=== PATIENT | female | born 1985 | race Hispanic/Latino ===

== ENCOUNTER 2021-08-18 06:43 | Emergency (ER) | payer BC, SELFPAY ==
[2021-08-18 06:44] VITALS: BP 131/78; PULSE 91; RESP 16; TEMP 37.2; O2SAT 100; BMI 29.9
--- NOTE | 2021-08-18 07:37 | EKG12_ITS ---
Test Reason : Blood Pressure : / mmHG Vent. Rate : 089 BPM Atrial Rate : 089 BPM P-R Int : 128 ms QRS Dur : 076 ms QT Int : 324 ms P-R-T Axes : 002 071 037 degrees QTc Int : 394 ms Normal sinus rhythm Normal ECG Confirmed by JARETT JEWELL, MICHAEL ([id number]), magazine editor BRITTANI KRAMER ([id number]) on 08/19/2021 8:59:34 AM Referred By: DAYSI Confirmed By:MICHAEL DENSON MD
--- NOTE | 2021-08-18 07:37 | EDS_ITS ---
HPI History of Present Illness Chief Complaint: Dizziness Informant: patient and spouse/S.O. Narrative Narrative: 36-year-old female presenting to the emergency room with lightheadedness. Patient states symptoms began yesterday. She notes that she recently found out that she was about 20 weeks . He has her first OB appointment upcoming. She is . She denies any fevers. No vomiting or diarrhea. She notes she has been eating and drinking okay. Reportedly had a blood pressure reading of 90 systolic at home. She has not lost consciousness. She denies any recent illnesses PFSH PFSH Medical History no medical history Home Medications NK 08/18/21 [History Last Taken Unknown] Allergy/AdvReac Type Severity Reaction Status Date / Time No Known Allergies Allergy Verified 08/18/21 06:47 Social History (Updated 08/18/21 @ 07:[address] Checo Ivey, DO) current gender identity: female Smoking Status: Never smoker ROS ROS ED ROS Narrative Lightheadedness Constitutional Constitutional ED: Denies chills or weight loss Eyes Eyes: Denies change in vision or diplopia ENT ENT ED: Denies ear pain, rhinorrhea or sore throat Cardiovascular Cardiovascular: Denies chest pain, orthopnea, palpitations or racing heartbeat Respiratory/Chest Respiratory/Chest: Denies cough, dyspnea or orthopnea Gastrointestinal Gastrointestinal: Reports nausea; Denies abdominal pain, diarrhea or vomiting Genitourinary Genitourinary ED: Denies dysuria, hematuria or urinary frequency Musculoskeletal Musculoskeletal: Denies arthralgias or myalgias Integumentary Denies abscess or rash Neurologic Neurologic: Denies headache(s) or weakness Psychiatric Psychiatric: Denies anxiety, depression, suicidal ideation or suicidal thoughts Endocrine Endocrinology: Denies polydipsia, polyphagia or polyuria Allergic/Immunologic Allergic/Immunologic ED: Denies mouth swelling, tongue swelling or urticaria EXAM Physical Exam Const Vital Signs: 08/18/21 06:44 08/18/21 06:49 Temperature 99 F Temperature Source Oral Pulse Rate 91 Respiratory Rate 16 Respiratory Effort Normal Non-Labored Respiratory Pattern Normal Blood Pressure 131/78 H Blood Pressure Mean 95 Pulse Ox 100 Oxygen Delivery Method Room Air Positive well nourished and well developed General Appearance ED: well developed HEENT Reports normocephalic, head/scalp atraumatic and moist mucous membranes Eyes PERRL and EOMs intact bilaterally Neck no lymphadenopathy, supple and no JVD Resp normal respiratory effort and clear to auscultation bilaterally Cardio regular rate, regular rhythm and no murmurs GI normal to inspection, nondistended, normoactive bowel sounds and non-tender Palpation: soft Back/Spine no CVA tenderness and normal ROM Extremity normal to inspection General Extremety ED: Negative for edema General Extremity: Negative for edema Neuro oriented x3 and CN's II-XII intact bilaterally Sensorium / Orientation: alert Motor Exam: strength 5/5 throughout Psych mental status grossly normal Mood & Affect: Negative for depressed or tearful Skin no rashes or lesions noted and no wounds MDM MDM MDM Narrative Medical decision making narrative: body maker via iPad was utilized for this visit. Bedside ultrasound shows a single live intrauterine . heart rate 148 bpm. Basic blood work showed a white count 12.3. Urinalysis contaminated but no overt infection. CMP normal. EKG is a normal sinus rhythm. Patient clinically appears well. Should be discharged home with supportive care following up with [facility] Lab Data Attestation: I reviewed the patient's lab results. Labs: Laboratory Results - last 24 hr 08/18/21 08/18/21 08/18/21 07:40 07:40 08:00 WBC 12.3 H RBC 4.36 Hgb 12.5 Hct 39.3 MCV 90.1 MCH 28.7 MCHC 31.8 L RDW Std Deviation 45.7 H RDW Coeff of Ying 13.8 Plt Count 220 MPV 10.4 Immature Gran % (Auto) 0.800 Neut % (Auto) 76.2 H Lymph % (Auto) 12.4 L [place] % (Auto) 9.7 Eos % (Auto) 0.6 Baso % (Auto) 0.3 Absolute Neuts (auto) 9.4 H Absolute Lymphs (auto) 1.53 Nucleated RBC % 0 Sodium 135 L Potassium 4.1 Chloride 104 Carbon Dioxide 25.0 Anion Gap 6 BUN 7 Creatinine 0.63 Estim Creat Clear Calc 92.26 Est GFR (MDRD) Af Amer 137 Est GFR (MDRD) Non-Af 113 BUN/Creatinine Ratio 11.1 Glucose 102 Calcium 9.2 Total Bilirubin 0.30 AST 12 L ALT 16 Alkaline Phosphatase 43 L Total Protein 7.1 Albumin 2.9 L Globulin 4.2 Albumin/Globulin Ratio 0.7 L Urine Color Yellow Urine Clarity Sl. Cloudy Urine pH 7.0 Ur Specific [place] 1.005 Urine Protein Negative Urine Glucose (UA) Normal Urine Ketones Negative Urine Occult Blood Negative Urine Nitrite Negative Urine Bilirubin Negative Urine Urobilinogen Normal Ur Leukocyte Esterase 100 H Urine RBC 0 SEEN Urine WBC 10-25 SEEN Ur Squamous Epith Cells 10-25 SEEN Urine Bacteria 1+ Urine Mucus 0 SEEN EKG Initial EKG: Comments: Normal sinus rhythm with a ventricular rate of 89 bpm Discharge Plan Triage Chief Complaint: Dizziness ED Provider: Checo Ivey Dx/Rx/DC Orders Clinical Impression: Near syncope, Second trimester Instructions: Preg 2nd Trimester Prescriptions: No Action NK Primary Care Provider: Care Physician,No Primary Referrals: NOT,DEFINED [NON-STAFF] - Activity Restrictions/Additional Instructions: Please follow-up with your assistant cross country coach as scheduled. Disposition Disposition: Home, Self Care
[2021-08-18 07:49] LABS: Absolute Lymphocyte Count 1.53 X10^3/uL (0.83-4.51); Absolute Neutrophil Count 9.4 X10^3/uL (2.0-7.7); Basophil# 0.04 X10^3/uL; Basophil% 0.3 % (0-1); Eosinophil# 0.07 X10^3/uL; Eosinophils% 0.6 % (0-5); Hematocrit 39.3 % (37-47); Hemoglobin 12.5 g/dL (12.0-15.0); Lymphocyte # 1.53 X10^3/ul (0.83-4.51); Lymphocyte % 12.4 % (19-41); Mean Corp Hgb Conc 31.8 g/dL (32-36); Mean Corpuscular Hgb 28.7 pg (27.0-32.0); Mean Corpuscular Volume 90.1 fL (81-99); Mean Platelet Vol. 10.4 fl (6.2-12.0); Monocyte# 1.19 X10^3/uL; Monocyte% 9.7 % (0-10); NRBC Flagged by Analyzer 0 % (0-5); Neutrophil # 9.37 X10^3/uL (2.7-7.7); Neutrophil % 76.2 % (47-70); Platelet Count 220 K/mm3 (150-450); RBC Distribution Width CV 13.8 % (11.6-14.6); RBC Distribution Width SD 45.7 fl (35.1-43.9); Red Blood Count 4.36 M/mm3 (4.2-5.4); White Blood Count 12.3 K/mm3 (4.4-11.0)
[2021-08-18 08:02] LABS: ALB/GLOB Ratio 0.7 RATIO (0.9-2.4); AST(SGOT) 12 U/L (15-37); Alanine Aminotransfer ALT/SGPT 16 U/L (13-56); Albumin, Serum 2.9 g/dL (3.2-5.0); Alkaline Phosphatase 43 U/L (45-117); Anion Gap 6 (5-15); BUN 7 mg/dL (7-18); BUN/Creat Ratio 11.1 RATIO (10-20); Calcium,Total 9.2 mg/dL (8.5-10.1); Chloride 104 mmol/L (98-107); Creatinine, Serum 0.63 mg/dL (0.55-1.02); EST Glomerular Filtration Rate 113 mL/min (>60); Est Glom Filt Rate - Afr Amer 137 mL/min (>60); Estimated Creatinine Clearance 92.26 ml/min; Globulin 4.2 g/dL (2.2-4.2); Glucose 102 mg/dL (74-106); Potassium 4.1 mmol/L (3.5-5.1); Protein, Total 7.1 g/dL (6.4-8.2); Sodium Level 135 mmol/L (136-145)
[2021-08-18 08:04] LABS: Mucous, Urine 0 SEEN /hpf (<or=2+); Red Blood Cells-Urine 0 SEEN /hpf (0-5)
[2021-08-18 08:10] LABS: Color, Urine Yellow (Yellow); Glucose, Dipstick Normal (Normal); Ketone-Dipstick Negative (Negative); Leukocyte Esterase-Dipstick 100 /ul (Negative); Nitrite-Dipstick Negative (Negative); Occult Blood-Urine Negative /ul (Negative); Protein-Dipstick Negative (Negative); Specific Gravity, Urine 1.005 (1.002-1.030); Urine Bilirubin Dipstick Negative (Negative); Urine Clarity Sl. Cloudy (Clear); Urine Urobilinogen Normal (Normal)
[2021-08-18 08:17] LABS: Bacteria 1+ /hpf (None Seen); Squamous Epithelial Cells - UA 10-25 SEEN /hpf (5-10); White Blood Cells 10-25 SEEN /hpf (0-5)
[2021-08-18 08:57] VITALS: BP 128/87; PULSE 100; RESP 18; O2SAT 98
== END 2021-08-18 08:58 | disposition home or self-care (01) ==
PROVIDERS: Emergency Provider Emergency Medicine; Visit Provider Emergency Medicine
DX: O99.891 Other specified diseases and conditions complicating pregnancy (principal); R55 Syncope and collapse; O09.512 Supervision of elderly primigravida, second trimester; R42 Dizziness and giddiness; Z3A.20 20 weeks gestation of pregnancy
CPT/HCPCS: 80053; 81001; 85025; 93005; 99283

== ENCOUNTER 2021-08-19 15:00 | Inpatient (IN) | payer BC, SELFPAY ==
[2021-08-19] VITALS (52 sets, daily range): BP systolic 85–197; BP diastolic 52–93; PULSE 67–108; TEMP 36.8–37.2; O2SAT 99–100; BMI 29.5
--- NOTE | 2021-08-19 15:09 | HP.PCM.OB_ITS ---
HPI - General General Date of Admission: 08/19/21 Chief Complaint: abdominal pain HPI Narrative IKE ROMAN, is a 36 F G1 who presents at 21 weeks gestation by stated ENZO 12/30/21 with intermittent abdominal pain and vaginal bleeding. She reports uncomplicated thus far. Recently traveled from the [place] and had an ultrasound there at 14 weeks gestation confirming living consistent with conception dates. PFSH PFSH Medical History no medical history no medical history Home Medications NK 08/18/21 [History Last Taken Unknown] Allergy/AdvReac Type Severity Reaction Status Date / Time No Known Allergies Allergy Verified 08/19/21 13:49 Family History no significant family his Surgical History no surgical history no surgical history Social History Smoking Status: Never smoker History 1 Elective abortions Hx Para 0 Spontaneous abortions Hx # Term Pregnancies Ectopic pregnancies Hx # Pregnancies Multiple births # of living children Addt'l History: History of irregular menses Vital Signs Vital Signs Vital Signs: 08/19/21 13:34 08/19/21 13:34 08/19/21 13:35 Temperature Temperature Source Temporal Pulse Rate 107 H Pulse Ox 100 08/19/21 13:35 Temperature 98.9 F Temperature Source Pulse Rate Pulse Ox Weight Weight: 70.76 kg Body Mass Index (BMI) 29.5 Physical Exam Const alert and oriented x3 Constitutional Narrative: breathing through contractions HEENT normocephalic Resp normal respiratory effort, normal air movement and clear to auscultation bilaterally Cardio regular rate and regular rhythm GI normal to inspection, nondistended, normoactive bowel sounds, soft to palpation and non-distended Inspection: gravid Narrative: Fundus tender SSE with BBOW in the vagina and large clot present, no hemorrhage present h owever and cervix not seen Bedside US with EFW 256g c/w 19w1d gestation ([place] 19w2d), double footling breech presentation with BBOW and lower extremities within the vagina Extremity no calf tenderness Labs Labs Labs: Blood Type O POSITIVE Antibody Screen NEGATIVE Hct 32.9 % (37-47) L Hgb 10.2 g/dL (12.0-15.0) L Syphilis Total Ab Pending Rubella IgG Antibody Pending Hep Bs Antigen Pending HIV 1&2 Antibody Pending Assessment & Plan (1) 21 weeks gestation of : (2) labor in second trimester: PLAN: labs, TFTs today Counseled patient and on inevitable delivery, development and limitations of support at this age. Discussed anticipated labor course and comfort care measures. Discussed r/b labor analgesia, pt declines at this time (3) Placental abruption: PLAN: PT/PTT, fibrinogen
[2021-08-19] MEDS: LACTATED RINGERS 500 ML 999 ML IV (15:10)
[2021-08-19] MEDS: Lactated Ringers 1,000 ML 200 ML IV (15:10)
[2021-08-19 15:56] LABS: Fibrinogen 626 mg/dl (203-444); Prothrombin Time (Protime)PT. 12.8 SECONDS (11.7-14.9)
[2021-08-19 16:07] LABS: Partial Thromboplast Time 24.3 Seconds (24.1-36.2)
[2021-08-19 16:26] LABS: Absolute Neutrophil Count 11.7 X10^3/uL (2.0-7.7); Basophil# 0.05 X10^3/uL; Basophil% 0.3 % (0-1); Eosinophil# 0.05 X10^3/uL; Eosinophils% 0.3 % (0-5); Hematocrit 41.7 % (37-47); Hemoglobin 13.5 g/dL (12.0-15.0); Lymphocyte % 14.4 % (19-41); Mean Corp Hgb Conc 32.4 g/dL (32-36); Mean Corpuscular Volume 89.7 fL (81-99); Mean Platelet Vol. 10.3 fl (6.2-12.0); Monocyte# 1.19 X10^3/uL; Monocyte% 7.8 % (0-10); NRBC Flagged by Analyzer 0 % (0-5); Neutrophil # 11.73 X10^3/uL (2.7-7.7); Neutrophil % 76.5 % (47-70); Platelet Count 235 K/mm3 (150-450); RBC Distribution Width CV 13.9 % (11.6-14.6); RBC Distribution Width SD 45.5 fl (35.1-43.9); Red Blood Count 4.65 M/mm3 (4.2-5.4); White Blood Count 15.3 K/mm3 (4.4-11.0)
[2021-08-19] MEDS: Oxytocin 30 units/NS 500 ml 30 UNITS/500 ML IV.SOLN 334 UNITS IV (17:15)
[2021-08-19] MEDS: miSOPROStol 200 MCG Tablet 1000 MCG RC (17:25)
[2021-08-19 17:29] LABS: ALB/GLOB Ratio 0.6 RATIO (0.9-2.4); AST(SGOT) 9 U/L (15-37); Alanine Aminotransfer ALT/SGPT 16 U/L (13-56); Alkaline Phosphatase 56 U/L (45-117); Anion Gap 10 (5-15); BUN 5 mg/dL (7-18); BUN/Creat Ratio 7.8 RATIO (10-20); Calcium,Total 9.1 mg/dL (8.5-10.1); Chloride 104 mmol/L (98-107); Creatinine, Serum 0.64 mg/dL (0.55-1.02); EST Glomerular Filtration Rate 111 mL/min (>60); Est Glom Filt Rate - Afr Amer 134 mL/min (>60); Estimated Creatinine Clearance 90.82 ml/min; Free T3 2.2 pg/mL (2.18-3.98); Glucose 87 mg/dL (74-106); Potassium 3.6 mmol/L (3.5-5.1); Sodium Level 136 mmol/L (136-145); T4 Free Direct 0.94 ng/dL (0.76-1.46); Thyroid Stim Hormone (TSH) 1.97 uIU/mL (0.358-3.74)
[2021-08-19] MEDS: Ketorolac 30 MG/ML Syringe IM (18:16)
[2021-08-19 19:52] LABS: Bacteria 0 SEEN /hpf (None Seen); Mucous, Urine 0 SEEN /hpf (<or=2+); Red Blood Cells-Urine 0 SEEN /hpf (0-5); White Blood Cells 0 SEEN /hpf (0-5)
[2021-08-19 19:59] LABS: Color, Urine Yellow (Yellow); Glucose, Dipstick Normal (Normal); Leukocyte Esterase-Dipstick Negative /ul (Negative); Nitrite-Dipstick Negative (Negative); Occult Blood-Urine 10 /ul (Negative); Protein-Dipstick Negative (Negative); Urine Bilirubin Dipstick Negative (Negative); Urine Clarity Clear (Clear); Urine Urobilinogen Normal (Normal)
[2021-08-19 20:06] LABS: Ketone-Dipstick 150 mg/dl (Negative)
[2021-08-19 20:33] LABS: Amphetamine Urine VISTA NEGATIVE (<1000 ng/mL); Barbiturate Urine VISTA NEGATIVE (< 200 ng/mL); Benzodiazepine Urine VISTA NEGATIVE (< 200 ng/mL); Cocaine Urine VISTA NEGATIVE (< 300 ng/mL); Ecstacy Urine VISTA NEGATIVE (< 500 ng/mL); Methadone Urine VISTA NEGATIVE (< 300 ng/mL); PCP Urine VISTA NEGATIVE (< 25 ng/mL); THC Urine VISTA NEGATIVE (< 50 ng/mL); Vista UDS pH Range 4
[2021-08-19 20:36] LABS: Absolute Lymphocyte Count 0.88 X10^3/uL (0.83-4.51); Absolute Neutrophil Count 14.6 X10^3/uL (2.0-7.7); Basophil# 0.05 X10^3/uL; Basophil% 0.3 % (0-1); Hematocrit 32.9 % (37-47); Hemoglobin 10.2 g/dL (12.0-15.0); Lymphocyte # 0.88 X10^3/ul (0.83-4.51); Lymphocyte % 5.4 % (19-41); Mean Corpuscular Hgb 29.3 pg (27.0-32.0); Mean Corpuscular Volume 94.5 fL (81-99); Mean Platelet Vol. 10.7 fl (6.2-12.0); Monocyte# 0.68 X10^3/uL; Monocyte% 4.1 % (0-10); NRBC Flagged by Analyzer 0 % (0-5); Neutrophil # 14.63 X10^3/uL (2.7-7.7); Neutrophil % 89.2 % (47-70); Platelet Count 200 K/mm3 (150-450); RBC Distribution Width CV 13.7 % (11.6-14.6); RBC Distribution Width SD 47.9 fl (35.1-43.9); Red Blood Count 3.48 M/mm3 (4.2-5.4); White Blood Count 16.4 K/mm3 (4.4-11.0)
[2021-08-19] MEDS: Methylergonovine 0.2 MG/ML Ampul IM (20:36)
--- NOTE | 2021-08-19 21:03 | OP.PCM_ITS ---
Problems Associated Problem List Diagnoses (1) Retained placenta: Report of Operation Date of Procedure: 08/19/21 Pre-Operative Diagnosis: 1. Second trimester vaginal delivery 2. Retained placenta Post-Operative Diagnosis: 1. Second trimester vaginal delivery 2. Retained placenta Surgery/Procedure Performed:: Suction dilation and curettage with ultrasound guidance Surgeon: Mary Lou Sellers surveillance specialist: Kaylin Shoemaker Type of Anesthesia: MAC Anesthesiologist: Allison Nelson Specimen's removed: placenta Estimated Blood Loss (mL): 650 Fluids Replaced: 700 ml Description of Procedure: Indication: 36-year-old 1 para 0-0-1-0 immediately status post vaginal delivery at 21 weeks following labor with cord avulsion was advised to proceed with suction D&C for retained placenta. Procedural risks, benefits, indications and alternatives were reviewed with the patient and her and they were agreeable to proceed. Patient was brought to the operating room and positioned into dorsal lithotomy. She was induced under MAC. The perineum was prepped and draped in sterile fashion. Weighted speculum was placed vaginally. There was increase in bleeding without hemorrhage and several blood clots were evacuated from the vaginal vault with descent of the placenta. Distal placenta was grasped with ring forceps and gently teased using the ring forceps to deliver. The anterior cervical lip was grasped using an Allis clamp and suction curettage was performed with a 14 mm curved curette using ultrasound guidance. This was followed by sharp curettage and again suction curettage performed with no further treatment retrieval of tissue. The endometrial stripe was thin and there was significant improvement of bleeding with hemostasis obtained. The fundus was firm at 4 fingerbreadths below the umbilicus. The patient was placed dorsal supine, awakened and transferred to the recovery room without complication. Sponge counts were correct x2. Patient was given Pitocin, IM Methergine and tranexamic acid in the operating room. Complications None Admit VTE Documentation VTE Present on Admission: No
[2021-08-19 21:08] LABS: Squamous Epithelial Cells - UA 0-5 SEEN /hpf (5-10)
--- NOTE | 2021-08-19 21:10 | PLAC_PTH ---
PATIENT: IKE MUNGUIA LOC: [facility] U#:[id number] AGE/SX: 36/F ROOM: WP021 RE08/19/[address]: Dr. Mary Lou Rm MD : 1985 BED: 1 DIS: 08/20/2021 SPEC #: [id number] RECD: 08/19/21 22:55 STATUS: OLLIE PEMBERTON #: [id number] ELYSE: 08/19/21 21:[address]: Mary Lou Sellers DEPT: SURGICAL PATHOLOGY RECD BY: Karlee Tovar ENTERED: 08/20/21 08:00 SP TYPE: PLACENTA OT DR: No Primary Care Phys Tissues: Placenta, NOS Procedures: Surgery Specimen Level V HEADER OPERATION: Vaginal delivery PRE-OP DIAGNOSIS: demise TISSUE SUBMITTED: Placenta MICROSCOPIC DIAGNOSIS Placenta, 21-week gestation (106 gm): Umbilical cord ? trivascular with acute funisitis. Placental membranes ? marked acute chorioamnionitis and acute deciduitis. Placental disc ? acute vasculitis of superficial placental vessels. Focal intervillous congestion. AM:hannah 08/21/2021 MICROSCOPIC DESCRIPTION Slides are reviewed. GROSS DESCRIPTION SPECIMEN: PLACENTA / CLINICAL INFORMATION: A. Weight: 250 grams B. Gestational Age: 21 weeks C. Sex: Female The specimen consists of a placental disc received in two fragments with attached portions of fallopian tube and peripheral membranes. PLACENTAL WEIGHT (POST FIXATION): 106 gm PLACENTAL DIMENSIONS: The two fragments of placental disc in aggregate measure 13 x 9 x 3 cm. PLACENTAL SHAPE: Usual ovoid PLACENTAL WEIGHT FOR GESTATIONAL AGE: Within 10-99th percentile (over/under percentile) MEMBRANES - Present A. Insertion: Marginal B. Site of rupture from edge: At edge of placental disc C. Color of membrane: Jerez-bailey D. Abnormalities: None UMBILICAL CORD - Present A. Color: Jerez-bailey B. Insertion: Marginal C. Length: 6 cm D. Diameter: 5 cm E. Number of vessels: Three F. Abnormalities: None PLACENTAL DISC - Present A. Color of surface: Jerez-bailey B. surface abnormalities: None C. Maternal cotyledons: Intact with minimal tears D. Attached retro placental clot: No clot E. Cut surface: Dark red and spongy F. Lesions: None G. Separate clot: 5 x 1 x 1 cm SECTIONS SUBMITTED: 1 ? umbilical cord, 2 ? membranes, total submitted, 3-5 placental disc. AM:hannah 08/20/2021 TC:2 CPT: 05640
--- NOTE | 2021-08-19 21:10 | EX.PCM.OBRPT ---
Assessment & Plan (1) (spontaneous vaginal delivery): (2) labor in second trimester: Maternal Data Information Final ENZO: 12/30/21 Final ENZO Source: [place] <20 weeks Gestational age: 21 weeks 0 days [place] Doctor Who Attended Delivery: Tapan Smith Vaginal Delivery Maternal Presentation Maternal Presentation: Active Labor Maternal Presentation: BBSHANTANU, ALLEN with breech presentation and bleeding, possible partial abruption Operative Information Date of Procedure: 08/19/21 Pre-Operative Diagnosis: 1. 21 weeks gestation 2. labor 3. Partial abruption Post-Operative Diagnosis: 1. 21 weeks gestation 2. labor 3. Partial abruption Surgery / Procedure Performed: Spontaneous Vaginal Delivery Type of Anesthesia: None Estimated Blood Loss: 400 ml Findings Description of Procedure: Fetus delivered en caul with tight nuchal cord x 2 attended by nursing staff. Nurse doubly clamped and cut cord. On my arrival patient was holding . Pediatric evaluation confirmed heart rate present with minimal respiratory effort. Perineum intact. The placenta was not palpable on vaginal exam and was retained on ultrasound. The patient was given 1000mcg misoprostol per vagina in addition to IV pitocin. The cord and placenta were re-evaluated periodically by myself and the nursing staff. I was alerted by nursing staff that the cord had avulsed approximately 2.5 hours after delivery. On my examination, there was still no descent of the placenta. I advised suction dilation and curettage with review of indications, risks, benefits, alternatives. See procedure note for additional details. Presentation: Footling Breech Amniotic Fluid Description: Clear Placental Delivery Description: Retained and Curettage Placenta Disposition: Sent to Pathology Specimen(s) Removed: placenta Cord Vessel Description: 3 Vessels Cord Entanglement: Around neck x 2, tight Infant A Gender: Female (1 minute): 1 (5 minute): 1 Delayed Cord Clamping: No Post Vaginal Delivery Medications Given After Delivery: IV Pitocin, IM Methergin and - (misoprostol) Episiotomy Description: None Laceration: None Complication Complications: None (retained placenta - see above)
[2021-08-19] MEDS: 0.9% Saline Lock 10 ML Syringe IV (22:02)
[2021-08-19 22:37] LABS: Chlamydia Trachomatis by PCR Negative (Negative); Neisserai gonorrhoeae by PCR Negative (Negative)
[2021-08-19 22:38] LABS: Probe Check PASS; Sample Adequacy Control PASS; Specimen Processing Control PASS
[2021-08-19 22:53] LABS: Pathology Specimen OB SEE PATHOLOGY REPORT
[2021-08-20 00:23] VITALS: BP 117/62; PULSE 80; RESP 18; TEMP 36.4
[2021-08-20 00:24] VITALS: BP 117/62; PULSE 80
[2021-08-20 03:58] VITALS: BP 99/53; PULSE 77; RESP 18; TEMP 36.9
--- NOTE | 2021-08-20 06:20 | DCINST_ITS ---
Discharge Instructions Diet Discharge Diet: No restrictions Activity Discharge Activity: Return to Normal Activity and May Shower May resume sexual activity in: 4-6 weeks Lifting Restrictions: 20 -25 lb Dressing / Incision Call your doctor if you observe: Fever of 101 or Higher, Using more than 1 pad per hour, Shortness of breath, Chest pain, Calf discomfort, Uncontrolled pain and - (Persistent or severe headache) Follow Up Care Please Follow Up With: Kimi Cook DO When: 1-2 weeks 4 weeks Arregla jonel cristiano ginecologica: 1 a 2 semanas y a las 4 semanas Test Results: Test results from this visit will be discussed in further detail at your follow- up appointment, if applicable. Discharge Plan Admission Admit Date/Time: 08/19/21 15:00 Primary Reason for Your Visit: Vaginal Attending Provider: Mary Lou Sellers Primary Care Provider: Care Physician,Ping Primary Discharge Orders/Prescriptions Prescriptions: New ibuprofen 400 mg Tablet 600 mg PO Q6H PRN PRN (Reason: pain) Qty: 30 0RF ferrous sulfate 325 mg (65 mg iron) tablet 325 mg PO BID Qty: 60 0RF Referrals / Follow Up: Kimi Cook DO [STAFF PHYSICIAN] - See Referral Note (F/U in 's office on Wednesday08/27/21 @ 2:50 pm. ) Care Physician,No Primary [Primary Care Provider] - Disposition Disposition (needs filled in before D/C Order can be placed): Home, Self Care
[2021-08-20 06:25] LABS: Hematocrit 28.1 % (37-47); Mean Corpuscular Volume 90.6 fL (81-99); Mean Platelet Vol. 10.4 fl (6.2-12.0); Platelet Count 190 K/mm3 (150-450); RBC Distribution Width CV 13.9 % (11.6-14.6); RBC Distribution Width SD 45.4 fl (35.1-43.9); White Blood Count 15.2 K/mm3 (4.4-11.0)
[2021-08-20 07:31] VITALS: BP 104/55; PULSE 79
[2021-08-20 07:49] LABS: Rubella IgG Reactive (Nonreactive); Syphilis Antibodies Non-reactive
[2021-08-20 08:00] VITALS: BP 104/55; PULSE 79; RESP 16; TEMP 36.8
[2021-08-20 08:05] LABS: HIV - WCH Non-Reactive (Nonreactive); Hepatitis B Surface Antigen Non-Reactive (Nonreactive); Hepatitis C Antibody Non-Reactive (Nonreactive)
--- NOTE | 2021-08-20 09:07 | PCM.DC.SUM ---
Providers Date of Admission: 08/19/21 Date of Discharge: 08/20/21 Primary Care Physician: No Primary Care Phys Reason For Visit: VAGINAL DELIVERY Diagnosis Discharge Diagnosis (1) 21 weeks gestation of : Status: Acute Code(s): Z3A.21 - 21 weeks gestation of (2) labor in second trimester: Status: Acute Code(s): O60.02 - labor without delivery, second trimester Plan: labs, TFTs today Counseled patient and on inevitable delivery, development and limitations of support at this age. Discussed anticipated labor course and comfort care measures. Discussed r/b labor analgesia, pt declines at this time (3) Placental abruption: Status: Acute Code(s): O45.90 - Premature separation of placenta, unspecified, unspecified trimester Plan: PT/PTT, fibrinogen Medications at Discharge Home Medications ferrous sulfate 325 mg (65 mg iron) tablet 325 mg PO BID #60 tabs 08/20/21 ibuprofen 400 mg tablet 600 mg PO Q6H PRN PRN pain #30 tabs 08/20/21 Hospital Course Operations - ( dilation and curettage) Procedures None Summary of Care Provided Hospital Course: 36yo G1 admitted at 21 weeks gestation with bleeding in active labor with full dilation and BBOW. She had a spontaneous vaginal delivery with subsequent cord avulsion requiring suction dilation and curettage for retained placenta. Her procedure was uncomplicated. She was discharged to home on postop/ day #1. Physical Exam Const alert, oriented x3 and no apparent distress Resp normal respiratory effort and normal air movement Cardio regular rate, regular rhythm, S1 normal heart sound and S2 normal heart sound Narrative: lochia scant Uterus Palpation: uterus fundus firm and other OB fundus nontender Extremity no calf tenderness Neuro oriented x3 Weight / BMI Weight Weight: 70.76 kg Body Mass Index (BMI) 29.5 ABG / Lab / Microbiology Data Result Diagrams: 08/20/21 06:15 08/19/21 16:15 Laboratory: Laboratory Results - last 24 hr 08/19/21 15:10: Blood Type O POSITIVE, Antibody Screen NEGATIVE 08/19/21 15:10: PT 12.8, INR 1.0, APTT 24.3, Fibrinogen 626 H 08/19/21 15:10: Crossmatch See Detail 08/19/21 16:15: WBC 15.3 H, RBC 4.65, Hgb 13.5, Hct 41.7, MCV 89.7, MCH 29.0, MCHC 32.4, RDW Std Deviation 45.5 H, RDW Coeff of Ying 13.9, Plt Count 235, MPV 10.3, Immature Gran % (Auto) 0.700, Neut % (Auto) 76.5 H, Lymph % (Auto) 14.4 L, [place] % (Auto) 7.8, Eos % (Auto) 0.3, Baso % (Auto) 0.3, Absolute Neuts (auto) 11.7 H, Absolute Lymphs (auto) 2.20, Nucleated RBC % 0 08/19/21 16:15: Syphilis Total Ab Non-reactive, Rubella IgG Antibody Reactive 08/19/21 16:15: Hep Bs Antigen Non-Reactive, Hepatitis C Antibody Non-Reactive, HIV 1&2 Antibody Non-Reactive 08/19/21 16:15: Sodium 136, Potassium 3.6, Chloride 104, Carbon Dioxide 22.0, Anion Gap 10, BUN 5 L, Creatinine 0.64, Estim Creat Clear Calc 90.82, Est GFR (MDRD) Af Amer 134, Est GFR (MDRD) Non-Af 111, BUN/Creatinine Ratio 7.8 L, Glucose 87, Calcium 9.1, Total Bilirubin 0.30, AST 9 L, ALT 16, Alkaline Phosphatase 56, Total Protein 8.0, Albumin 3.0 L, Globulin 5.0 H, Albumin/Globulin Ratio 0.6 L, TSH 1.97, Free T4 0.94, Free T3 pg/dL 2.2 08/19/21 19:30: Urine Color Yellow, Urine Clarity Clear, Urine pH 6.0, Ur Specific [place] 1.020, Urine Protein Negative, Urine Glucose (UA) Normal, Urine Ketones 150 A*, Urine Occult Blood 10 H, Urine Nitrite Negative, Urine Bilirubin Negative, Urine Urobilinogen Normal, Ur Leukocyte Esterase Negative, Urine RBC 0 SEEN, Urine WBC 0 SEEN, Ur Squamous Epith Cells 0-5 SEEN, Urine Bacteria 0 SEEN, Urine Mucus 0 SEEN 08/19/21 19:30: Urine Opiates Screen NEGATIVE, Urine Methadone Screen NEGATIVE, Ur Barbiturates Screen NEGATIVE, Ur Phencyclidine Scrn NEGATIVE, Ur Amphetamines Screen NEGATIVE, MDMA (Ecstasy) Screen NEGATIVE, U Benzodiazepines Scrn NEGATIVE, Urine Cocaine Screen NEGATIVE, U Cannabinoids Screen NEGATIVE, Ur Drug Screen Comment 08/19/21 20:00: Chlam trachomat DNA PCR Negative, N.gonorrhoeae DNA (PCR) Negative 08/19/21 20:25: WBC 16.4 H, RBC 3.48 L, Hgb 10.2 L, Hct 32.9 L, MCV 94.5 D, MCH 29.3, MCHC 31.0 L, RDW Std Deviation 47.9 H, RDW Coeff of Ying 13.7, Plt Count 200, MPV 10.7, Immature Gran % (Auto) 1.000 H, Neut % (Auto) 89.2 H, Lymph % (Auto) 5.4 L, [place] % (Auto) 4.1, Eos % (Auto) 0.0, Baso % (Auto) 0.3, Absolute Neuts (auto) 14.6 H, Absolute Lymphs (auto) 0.88, Nucleated RBC % 0 08/20/21 06:15: WBC 15.2 H, RBC 3.10 L, Hgb 9.0 L, Hct 28.1 L, MCV 90.6, MCH 29.0, MCHC 32.0, RDW Std Deviation 45.4 H, RDW Coeff of Ying 13.9, Plt Count 190, MPV 10.4 Microbiology: Microbiology 08/19/21 15:30 Nasal Secretion SARS-CoV-2 Antigen (Rapid) - Final D/C Instructions Discharge Diet: No restrictions Discharge Activity: Return to Normal Activity, May Shower and May Take a Tub Bath (No tub bath for 1 week) May resume sexual activity in: 4-6 weeks Lifting Restrictions: 20-25 lb Call your doctor if you observe: Fever of 101 or Higher, Using more than 1 pad per hour, Shortness of breath, Chest pain, Calf discomfort, Uncontrolled pain and - (Persistent or severe headache) Please Follow Up With: Mray Lou Sellers MD When: August [address] Kimi Cook Meaningful Use Info Meaningful Use Diagnoses (Choose all that apply): None applicable Discharge Plan Admission Admit Date/Time: 08/19/21 15:00 Primary Reason for Your Visit: Vaginal Attending Provider: Mary Lou Sellers Primary Care Provider: Care Physician,No Primary Discharge Orders/Prescriptions Prescriptions: New ibuprofen 400 mg Tablet 600 mg PO Q6H PRN PRN (Reason: pain) Qty: 30 0RF ferrous sulfate 325 mg (65 mg iron) tablet 325 mg PO BID Qty: 60 0RF Referrals / Follow Up: Kimi Cook DO [STAFF PHYSICIAN] - See Referral Note (F/U in 's office on Wednesday08/27/21 @ 2:50 pm. ) Care Physician,No Primary [Primary Care Provider] - Disposition Disposition (needs filled in before D/C Order can be placed): Home, Self Care
--- NOTE | 2021-08-20 11:39 | CASEMGMT ---
Social Work Labor and Delivery Unit Reason for consult: loss at 21 weeks gestation Referral source: KIRT Todd Informant: Medical record and mother of baby (MOB) Asia Cosme; father of baby (FOB) Alex Burnett and also participated.; Vacuum Cleaner Repairer iPad used to assist with translation, rocky Abbott, ID number [id number]. Summary: This is a 36-year-old female who immigrated from the [facility]. to the [facility] for the last 11 years. FOB reports has been living in [place] moved to [place] about 6 months ago. FOB is working in [facility] for a [employer]. MOB is 1, para 01 after delivering a 21-week gestation, not viable extrauterine life. Per medical record the MOB did have a 14-week ultrasound during the visit to the [facility]. Baby girl weighed 9 ounces at no reported history of use for mental health issues. No reported or indicated domestic violence issues, and was denied upon admission. Assessment: This television writer learned from nursing family desires burial for the baby, and using [facility] to assist. Met with MOB and FOB in room, introducing self/role/provision of condolences in [place]er and then used bakery helper iPad for reintroduction and completion of social work consult. MOB and FOB report they live together, and no concerns about housing or basic needs reported. MOB and FOB reported may support to each other, though MOB's sister was also in the room and is a reported support to the MOB. Educated to depression, and grief, as well as that depression is part of grief. Acknowledged that there could be a way of emotions that the parents experience upon going home and that this is common, but also important to accept support should feelings become distressing. Encourage self-care. Also acknowledged that can be difficult to be going through session experience in the community where the primary language is not used. MOB tearful and shook head yes the language barrier is at times difficult. Emotional support, encouragement, and reflection provided to this family. Provided maternal mental health hotline and support international warmline as supports related to depression and grief. Both resources offer [place]er-speaking options. Provided handouts on depression in [place]er. Provided a [facility] resource list in [place]er, which includes counseling options that can address both depression and grief issues. Parents expressed appreciation for support provided this date. MOB declined this television writer making any referrals or counseling at this point. MOB and FOB provided opportunity to ask questions with this television writer reinforcing that want parents to have the support that they need prior to leaving the hospital. MOB and FOB denied any additional questions and indicated needs have been met. Supportive listening provided. MOB and FOB both appropriately tearful during conversation, sad moods noted. MOB sister also tearful and quiet during conversation. No MOB okay with family in the room during conversation. Plan: MOB and FOB will discharge home, with resources provided in [place]er, which is the family's primary language. -SARAH Jamison, JALOUSIE INSTALLER *This note was generated with [employer] dictation software. It may contain incorrect words, spelling, and punctuation that were not noted in review of the chart prior to signing*
--- NOTE | 2021-08-20 12:39 | NURSING ---
Discharge information printed off [employer] in Welsh for discharge instructions and serbian grieving packet given for mother, father, and grandparents. Pt verb understanding and asking appropriate questions. All questions answered to there satisfaction.
--- NOTE | 2021-08-26 14:49 | NURSING ---
Follow-up phone call made to Dorene using the per diem interpreter ipad service. Wine Fermenter Zayra, ID #[id number] interpreted this conversation. Pt. reports she is feeling better today than when she left. Reports that she is bleeding just a little, not heavily. When asked about if she is able to eat and sleep ok, she reports she is getting very little sleep as breasts are very swollen and causing a lot of pain. Dorene given info on using cabbage leaves if not allergic to Sulfa, using Motrin and Tylenol prn for pain and swelling, wearing a tight-fitting bra, and adding no stimulation to breasts to relieve pain and pressure. Pt. reports that she is not stimulating at all. Dorene is also very confused about the follow-up appt. that is scheduled for tomorrow, unsure of where it is and where to go. Reports that they called this am to remind her of the appt., but that she could not understand them very well, and was afraid that the appt. had been cancelled. This nurse assured pt. that I would call the office to verify the appt. and will return phone call. Informed of address of location of office for appt. Also told pt. that I have an information brochure of Caring for Yourself After a Loss, that talks about body changes, healing, and dealing with grief. Will try to get this to a provider to take to the office. Also discussed that they photos we took of Ramya are with the television news photographer being edited, and that we hope to have them back when we call to check on her about 1 month out from her visit. Pt. reports that she is appreciative of this. This nurse called the office, and talked with Yolette, to verify that appt. is still scheduled at 2:[address] Cook. Returned phone call to Dorene using per diem interpreter Radha, ID #[id number] to inform pt. that her appt. is still scheduled for tomorrow (08/27) at 2:[address] Cook. Verified that this appt. is at [facility], and not within the hospital. Also reported to pt. that they will use an per diem interpreter service for her appt. as we did while she was a patient here. Denies any other needs at this time. Asked Dorene to call back if she needs anything from us at [facility].
--- NOTE | 2021-09-26 09:17 | NURSING ---
Pt. reports doing ok since last aleshia - no pain. Reports that emotionally she is feeling more calm, able to sleep more. She is able to make her follow-up visits easily, and has been able to follow-up as needed for these. Her next appt. is October 01 in the office. Dorene is curious about the pictures, and this is partially why I was calling was to set up a date to get her pictures to her. She is able to set up a date for 10/10/21 at 3pm to come and get the pictures. She is agreeable to come to [facility] to view them and then take them with her. She is also curious about billing, reporting that she has received a bill from the hospital and from the insurance for different amounts. Would like to talk to billing about these and a payment arrangement. Will touch base with billing about this. Denies further needs at this time. Pt. made aware that she may call in at any time for questions or concerns. This using circular ripsaw operator ipad with circular ripsaw operator Renetta, ID#[id number].
--- NOTE | 2021-10-12 15:50 | NURSING ---
Call placed via interpretor IPAD to patient to reschedule picture poultry picking machine tender appointment at . Pt states does not have transportation this week. Plan is to call patient on Wednesday to set picture poultry picking machine tender appointment for week of the .
--- NOTE | 2021-10-17 19:48 | NURSING ---
Phone call made to Dorene to check about appt. to meet to get photos of baby Ramya as she was unable to make the last one due to car issues. Reporting that that is resolved and that she is now planning to come at 3pm on October 24. Reports that she has not yet talked to anyone from billing as she has requested several times over, and so will try to follow-up with this as well. Pt. sounds like she is in good spirits. Given directions on where to come to meet for the photos. This using lang interpreter tSew, ID # [id number]
== END 2021-08-20 12:00 | disposition home or self-care (01) | DRG 805 ==
LOC: WPOUT 15:10 → WP 15:10
PROVIDERS: Admitting Provider Obstetrics & Gynecology; Referring Provider Obstetrics & Gynecology; Visit Provider Obstetrics & Gynecology
DX: O60.12X0 Preterm labor second trimester with preterm delivery second trimester, not applicable or unspecified (principal); Z37.0 Single live birth; O45.92 Premature separation of placenta, unspecified, second trimester; O32.1XX0 Maternal care for breech presentation, not applicable or unspecified; Z3A.21 21 weeks gestation of pregnancy; O69.2XX0 Labor and delivery complicated by other cord entanglement, with compression, not applicable or unspecified; O73.0 Retained placenta without hemorrhage
CPT/HCPCS: 36415; 59050; 76815; 80053; 80307; 81001; 84439; 84443; 84481; 85025; 85027; 85384; 85610; 85730; 86703; 86762; 86780; 86803; 86850; 86900; 86901; 86920; 87340; 87426; 87491; 87591; 88307; 99218; J7120; A4216; G0378

== ENCOUNTER 2022-10-21 02:48 | Inpatient (IN) | payer BC, MEDICAID, SELFPAY ==
[2022-10-21] VITALS (49 sets, daily range): BP systolic 108–133; BP diastolic 55–87; PULSE 73–113; RESP 16–18; TEMP 36.5–37.7; O2SAT 80–100; BMI 31.4
[2022-10-21 03:04] LABS: ROM Internal Control Test YES-OK TO RESULT pt. (Internal QC); ROM Patient Test POSITIVE (Negative); Record Kit Lot#, ROM+ K1374
[2022-10-21 03:09] LABS: Absolute Lymphocyte Count 2.53 X10^3/uL (0.83-4.51); Absolute Neutrophil Count 3.4 X10^3/uL (2.0-7.7); Basophil# 0.04 X10^3/uL; Basophil% 0.6 % (0-1); Eosinophil# 0.06 X10^3/uL; Eosinophils% 0.9 % (0-5); Hematocrit 43.3 % (37-47); Hemoglobin 14.2 g/dL (12.0-15.0); Lymphocyte # 2.53 X10^3/ul (0.83-4.51); Lymphocyte % 37.1 % (19-41); Mean Corp Hgb Conc 32.8 g/dL (32-36); Mean Corpuscular Hgb 29.3 pg (27.0-32.0); Mean Corpuscular Volume 89.5 fL (81-99); Mean Platelet Vol. 11.5 fl (6.2-12.0); Monocyte# 0.76 X10^3/uL; Monocyte% 11.1 % (0-10); NRBC Flagged by Analyzer 0 % (0-5); Neutrophil # 3.39 X10^3/uL (2.7-7.7); Neutrophil % 49.7 % (47-70); Platelet Count 180 K/mm3 (150-450); RBC Distribution Width CV 13.4 % (11.6-14.6); RBC Distribution Width SD 43.7 fl (35.1-43.9); Red Blood Count 4.84 M/mm3 (4.2-5.4); White Blood Count 6.8 K/mm3 (4.4-11.0)
[2022-10-21] MEDS: LACTATED RINGERS 500 ML 999 ML IV (03:29)
[2022-10-21] MEDS: Lactated Ringers 1,000 ML 50 ML IV (03:30)
[2022-10-21 03:34] LABS: Bedside Glucose 105 mg/dL (74-106)
[2022-10-21] MEDS: fentaNYL-bupivacaine (epidural) 100 ML BAG EPIDURAL (03:55)
--- NOTE | 2022-10-21 04:22 | NURSING ---
trustee of estate used for admission and care, [id number], began at 0230 and ended at 0430 on 10/21/22
[2022-10-21 04:41] LABS: Syphilis Antibodies Non-reactive
--- NOTE | 2022-10-21 04:48 | NURSING ---
carpet jack [id number], 10/21/22 [phone]
--- NOTE | 2022-10-21 06:17 | PCM.HP.OB ---
HPI - General General Date of Admission: 10/21/22 HPI Narrative IKE ROMAN, is a 37 F who presents Maternal Data Information Final ENZO: 11/01/22 Gestational age: 38&3 PFSH PFSH Medical History (Updated 10/21/22 @ 06:[address] Tammy Mcclelland MD) Gestational diabetes Home Medications ferrous sulfate 325 mg (65 mg iron) tablet 325 mg PO BID low hgb #60 tabs 08/20/21 [Rx Last Taken 10/20/22] ibuprofen 400 mg tablet 600 mg (1.5 x 400 mg) PO Q6H PRN PRN pain #30 tabs 08/20/21 [Rx Last Taken Unknown] aspirin 81 mg tablet,delayed release (Adult Aspirin Regimen) 81 mg PO DAILY 10/21/22 [History Last Taken 10/20/22] Allergy/AdvReac Type Severity Reaction Status Date / Time No Known Allergies Allergy Verified 10/21/22 04:24 Surgical History History of gynecologic surgery Social History Smoking Status: Never smoker History 1 Elective abortions Hx Para 0 Spontaneous abortions Hx # Term Pregnancies Ectopic pregnancies Hx # Pregnancies Multiple births # of living children NST FHR Rate Baby B Baseline: 145 Variability:: Minimal and Moderate Accelerations:: 15 x 15 Decelerations:: Variable Uterine Activity:: Q 3-4 minutes Vital Signs Vital Signs Vital Signs: 10/21/22 03:10 10/21/22 03:10 10/21/22 03:10 Temperature Temperature Source Pulse Rate 76 Blood Pressure 124/75 H BP Systolic 124 BP Diastolic 75 Pulse Ox 98 10/21/22 03:05 10/21/22 03:05 10/21/22 03:42 Temperature 98.6 F Temperature Source Temporal Pulse Rate Blood Pressure 129/79 H BP Systolic 129 BP Diastolic 79 Pulse Ox 10/21/22 03:42 10/21/22 03:42 10/21/22 03:47 Temperature Temperature Source Pulse Rate 84 85 Blood Pressure BP Systolic BP Diastolic Pulse Ox 98 10/21/22 03:47 10/21/22 03:48 10/21/22 03:48 Temperature Temperature Source Pulse Rate 76 Blood Pressure 120/63 BP Systolic 120 BP Diastolic 63 Pulse Ox 98 10/21/22 03:50 10/21/22 03:50 10/21/22 03:53 Temperature Temperature Source Pulse Rate 79 Blood Pressure 128/68 H 126/65 H BP Systolic 128 126 BP Diastolic 68 65 Pulse Ox 10/21/22 03:53 10/21/22 03:54 10/21/22 03:54 Temperature Temperature Source Pulse Rate 80 83 Blood Pressure BP Systolic BP Diastolic Pulse Ox 99 10/21/22 04:00 10/21/22 04:00 10/21/22 04:00 Temperature Temperature Source Pulse Rate 80 Blood Pressure 122/62 H BP Systolic 122 BP Diastolic 62 Pulse Ox 80 10/21/22 04:01 10/21/22 04:01 10/21/22 04:05 Temperature Temperature Source Pulse Rate 86 Blood Pressure 121/87 H BP Systolic 121 BP Diastolic 87 Pulse Ox 98 10/21/22 04:05 10/21/22 04:06 10/21/22 04:06 Temperature Temperature Source Pulse Rate 83 81 Blood Pressure BP Systolic BP Diastolic Pulse Ox 98 10/21/22 04:09 10/21/22 04:09 10/21/22 04:11 Temperature Temperature Source Pulse Rate 80 80 Blood Pressure 117/60 BP Systolic 117 BP Diastolic 60 Pulse Ox 10/21/22 04:11 10/21/22 04:14 10/21/22 04:14 Temperature Temperature Source Pulse Rate 76 Blood Pressure 115/68 BP Systolic 115 BP Diastolic 68 Pulse Ox 99 10/21/22 04:16 10/21/22 04:16 10/21/22 04:21 Temperature Temperature Source Pulse Rate 80 Blood Pressure 131/75 H BP Systolic 131 BP Diastolic 75 Pulse Ox 99 10/21/22 04:21 10/21/22 04:21 10/21/22 04:21 Temperature Temperature Source Pulse Rate 74 74 Blood Pressure BP Systolic BP Diastolic Pulse Ox 99 10/21/22 04:24 10/21/22 04:24 10/21/22 04:26 Temperature Temperature Source Pulse Rate 77 95 Blood Pressure 131/63 H BP Systolic 131 BP Diastolic 63 Pulse Ox 10/21/22 04:26 10/21/22 04:30 10/21/22 04:30 Temperature Temperature Source Pulse Rate 80 Blood Pressure 133/80 H BP Systolic 133 BP Diastolic 80 Pulse Ox 99 10/21/22 04:31 10/21/22 04:31 10/21/22 04:34 Temperature Temperature Source Pulse Rate 87 Blood Pressure 120/58 L BP Systolic 120 BP Diastolic 58 Pulse Ox 100 10/21/22 04:34 10/21/22 04:36 10/21/22 04:36 Temperature Temperature Source Pulse Rate 75 96 Blood Pressure BP Systolic BP Diastolic Pulse Ox 100 10/21/22 04:40 10/21/22 04:40 10/21/22 04:41 Temperature Temperature Source Pulse Rate 83 73 Blood Pressure 111/72 BP Systolic 111 BP Diastolic 72 Pulse Ox 10/21/22 04:41 10/21/22 04:44 10/21/22 04:44 Temperature Temperature Source Pulse Rate 88 Blood Pressure 108/69 BP Systolic 108 BP Diastolic 69 Pulse Ox 99 10/21/22 04:46 10/21/22 04:46 10/21/22 04:49 Temperature Temperature Source Pulse Rate 76 74 Blood Pressure BP Systolic BP Diastolic Pulse Ox 99 10/21/22 04:51 10/21/22 04:51 Temperature Temperature Source Pulse Rate 74 Blood Pressure BP Systolic BP Diastolic Pulse Ox 99 Weight Weight: 166 lb Body Mass Index (BMI) 31.4 Labs Labs Labs: Blood Type O POSITIVE Antibody Screen NEGATIVE Hct 43.3 % (37-47) Hgb 14.2 g/dL (12.0-15.0) Syphilis Total Ab Non-reactive Rubella IgG Antibody Reactive (Nonreactive) Hep Bs Antigen Non-Reactive (Nonreactive) HIV 1&2 Antibody Non-Reactive (Nonreactive) see [facility] H&P Assessment & Plan (1) 38 weeks gestation of : COMMENT: @ 38&3 PLAN: Plan Admit to L&D Patient is now C/C/+2 and pushing GBS negative EFW - less than 4500g, patient with adequate pelvis Pain - epidural
--- NOTE | 2022-10-21 06:23 | EX.PCM.OBRPT ---
Maternal Data Information Final ENZO: 11/01/22 Gestational age: 38&3 Vaginal Delivery Maternal Presentation Maternal Presentation: Active Labor and Spontaneous Rupture of Membranes Operative Information Date of Procedure: 10/21/22 Pre-Operative Diagnosis: Labor Post-Operative Diagnosis: Same Surgery / Procedure Performed: Spontaneous Vaginal Delivery Type of Anesthesia: Epidural Estimated Blood Loss: 350ml Findings Description of Procedure: Patient prepped & draped when C/C/+2. She pushed well to deliver the head. head gently guided to allow delivery of anterior and posterior shoulders. No excess traction placed on head. Body delivered and 3VC clamped & cut in delayed fashion. Placenta delivered with gentle traction and good uterine tone obtained. Presentation: CLAUDIA Amniotic Membrane Rupture Type: Spontaneous Amniotic Fluid Description: Clear Placental Delivery Description: Expressed Placenta Disposition: [facility] Specimen(s) Removed: Placenta Cord Vessel Description: 3 Vessels Cord Entanglement: Around neck x 1, loose Nuchal Cord Compression: Without compression A Gender: Female (1 minute): 9 (5 minute): 9 Delayed Cord Clamping: Yes Post Vaginal Delivery Medications Given After Delivery: IV Pitocin Laceration: 1st degree (vaginal - repaired with 3-0 vicryl) Complication Complications: None
[2022-10-21] MEDS: Oxytocin 15 Units/NS 250ml 15 UNITS/250 ML IV.SOLN 2 UNITS IV (07:00)
[2022-10-21 08:20] LABS: Bedside Glucose 119 mg/dL (74-106)
[2022-10-21] MEDS: Oxytocin 15 Units/NS 250ml 15 UNITS/250 ML IV.SOLN 83 UNITS IV (08:52)
[2022-10-21] MEDS: Methylergonovine 0.2 MG/ML Ampul IM (09:12)
--- NOTE | 2022-10-21 11:17 | NURSING ---
id number [id number] Martín
--- NOTE | 2022-10-21 11:18 | NURSING ---
selwyn cortez-id #[id number]
--- NOTE | 2022-10-21 11:18 | NURSING ---
spoke w Maren Giordano ID # [id number]
[2022-10-21 11:39] LABS: Bedside Glucose 102 mg/dL (74-106)
[2022-10-21] MEDS: 0.9% Saline Lock 10 ML Syringe IV (13:00)
[2022-10-21] MEDS: Ibuprofen 600 MG Tablet PO (18:08)
--- NOTE | 2022-10-21 19:02 | NURSING ---
interpretor Nancie ID # [id number]
[2022-10-22 00:30] VITALS: BP 105/64; PULSE 84; RESP 16; O2SAT 97
[2022-10-22 03:48] VITALS: BP 109/63; PULSE 75; RESP 16; O2SAT 98
[2022-10-22] MEDS: Ibuprofen 600 MG Tablet PO ×2 (04:22→12:13)
[2022-10-22 06:17] LABS: Bedside Glucose 68 mg/dL (74-106)
--- NOTE | 2022-10-22 06:24 | NURSING ---
0602:This RN at bedside to take pt's fasting BGT at bedside. Fasting BS of 68. RN to give pt juice and recheck blood sugar in 15 minutes.
[2022-10-22 07:11] LABS: Bedside Glucose 108 mg/dL (74-106)
--- NOTE | 2022-10-22 08:07 | NURSING ---
Tableau Lead: [place] [id number] Dr Cook using for discharge instructions. Nurse provided written wolof material for folder
--- NOTE | 2022-10-22 08:25 | PCM.PN.OB ---
Subjective Subjective Pt is doing well. She denies complaints. She desires to go home today. She denies lightheadedness, dizziness, chest pain, shortness of breath, leg pain. Lochia is normal. She is ambulating and voiding without difficulty. She is tolerating regular diet without nausea or vomiting. She is breast-feeding without complaints. She has a follow-up visit scheduled with . Objective Data Objective Data Vital Signs: Vital Signs Temp Pulse Resp BP Pulse Ox O2 Del Method 97.7 F L 75 16 109/63 98 Room Air 10/21/22 17:50 10/22/22 03:48 10/22/22 03:48 10/22/22 03:48 10/22/22 03:48 10/22/22 03:48 Oxygen Delivery Method Room Air Weight: 166 lb Body Mass Index (BMI) 31.4 Intake & Output: Intake and Output for Last 24 Hours 10/20/22 10/21/22 10/22/22 23:59 23:59 23:59 Intake Total 2016.91 / 2015. Output Total 1400 / 1400 Balance 616.91 / 616.91 Lab / Micro Data 10/21/22 03:00 Labs: Laboratory Results - last 24 hr 10/21/22 10:46: POC Glucose 102 10/22/22 05:53: POC Glucose 68 L 10/22/22 06:16: POC Glucose 108 H Physical Exam Const alert and no apparent distress Constitutional Narrative: Nursing baby General Appearance: comfortable Resp normal respiratory effort Extremity normal to inspection and no calf tenderness Assessment & Plan (1) Vaginal delivery: PLAN: Pt is day 1 from a vaginal delivery. She is doing well and desires discharge. Discharge instructions were reviewed with the feeder worker power unit operator. Instructed her to follow-up in the office in 1 to 2 weeks.
--- NOTE | 2022-10-22 08:28 | DCINST_ITS ---
Discharge Instructions Diet Discharge Diet: No restrictions Activity Discharge Activity: May Shower May resume sexual activity in: 6 weeks Ice area for (Minutes): 15 Weight Bearing Status: Weight bearing as tolerated Lifting Restrictions: nothing heavier than baby Dressing / Incision Call your doctor if you observe: Fever of 101 or Higher, Coldness, Increased Pain, Numbness or Tingling, Change in Color, Inability to urinate, Inability to have a bowel movement, Using more than 1 pad per hour, Shortness of breath, Dizziness, Fainting spells, Swelling in the ankles, Chest pain, Increased palpitations (irregular heartbeat), Calf discomfort and Uncontrolled pain Cleanse incision/area with: Soap & Water Follow Up Care Please Follow Up With: Tammy Mcclelland MD When: 1-2 weeks for early visit 6 weeks for exam Test Results: Test results from this visit will be discussed in further detail at your follow- up appointment, if applicable. Discharge Plan Admission Admit Date/Time: 10/21/22 02:48 Primary Reason for Your Visit: delivery Attending Provider: Tammy Mcclelland Primary Care Provider: Care PhysicianPing Primary Instructions Patient Instructions: After a Vaginal Discharge Orders/Prescriptions Prescriptions: Continued ibuprofen 400 mg Tablet 600 mg PO Q6H PRN PRN (Reason: pain) Qty: 30 0RF Discontinued ferrous sulfate 325 mg (65 mg iron) tablet 325 mg PO BID Qty: 60 0RF aspirin [Adult Aspirin Regimen] 81 mg tablet,delayed release (DR/EC) 81 mg PO DAILY Referrals / Follow Up: Care PhysicianPing Primary [Primary Care Provider] - Disposition Disposition (needs filled in before D/C Order can be placed): Home, Self Care
--- NOTE | 2022-10-22 09:49 | CASEMGMT ---
Social Work Assessment Labor and Delivery Unit Patient Address:[place] [address] Phone number: [phone] Date of Referral:10/21/22 Time of Referral:?829 Referred By: Nursing staff Date of Intervention: ?10/22/22? Time of Intervention:? 09 Reason for Referral:?Sw informed of need for social work consult due to family from [place] and would benefit from resources, and prior 21 week loss Sw completed chart review and acknowledges social work consult. Sw presented to bedside and met with mother of baby (ELIZABETH Catherine) and her sister. MOB stated that it was okay for social work to complete assessment with visitor present. Sw explained reason for sw involvement and need to complete psychosocial assessment. Sw provided MOB with literature to review regarding depression and baby blues, and [facility] list of community resources. MOB states that father of baby (BERNIE Johnson) is at home but will be on his way shortly to take mom and baby home when ready for discharge. History obtained from: chart review and MOB Household composition: Currently residing in the family household is JUDY FRENCH and now baby girl. Patient's parent/guardian status:?MOB states that she and JUDY were introduced by JUDY's brother. MOB states that they have been together for about 2 years. GILLIAN states that she is safe at home and denies any concerns regarding domestic abuse and intimate partner violence. Medical History: GILLIAN is 2, para 0- now 1. GILLIAN experienced a 21 week loss July 2021. GILLIAN received routine care during with [facility]. GILLIAN delivered baby via vaginal delivery on 10/21/22 at 38 weeks gestation. Baby girl, named Radha Medina, was born weighing 6lb 15oz and her apgars were 9 and 9 at one and five minuts of life respectfully. MOB states that she is working on breast feeding. Sw provided support and encouraged GILLIAN to follow up with outpatient services. MOB states that she already has an appointment scheduled for tomorrow. Educational Status: MOB reports that she graduated from high school, and JUDY finished 8th grade. No college education for either parent. Financial Status:MOB states that she was formerly employed outside of the home working for [employer]. MOB states that at 31 weeks she quit her job. JUDY is gainfully employed outside of the home at a [employer]. GILLIAN states that he is able to take some time off (-Wednesday) now that baby has been born. Supplies:?GILLIAN states that she has everything that she needs for baby, including: safe sleep space, car seat, clothes, diapers and wipes. GILLIAN states that she does not have a breast pump at this time, but is assisting her with obtaining one. Transportation:??GILLIAN reports that she does not have her drivers license, anytime she has a doctors appointment [employer] drives her. Programs/Agencies Involved: ???GILLIAN is connected to [employer]. Sw provided GILLIAN with list of resources available to her in [place]. Sw encouraged MOB to follow up with [employer] to see if family is eligible for food stamps or bowers assistance now that baby has been born. Children Services/Legal Issues:?No former involvement, no concerns at this time warranting referral. Behavioral Health Issues: ??Mental Health History: ?MOB states that neither she or JUDY have mental health history. Sw asked GILLIAN if she experienced any symptoms of baby blues or depression following the loss she experienced last year. GILLIAN stated that she did have some of the baby blues, but they did not last long. Sw discussed with GILLIAN that she could have also been grieving, and the symptoms of grief and baby blues/ depression could mimic each other. MOB expressed understanding. Substance Use History:?? GILLIAN denies substance use prior to or during . Family History:??MOB states that neither her family or FOB family has history of substance use or mental health. ?? Drug Screens: Last charted toxicology screen was in 2021, and it was negative for all substances. Toxicology for current labor and delivery not completed. Family/Social Stressors:? GILLIAN states that she does not have a lot of supports available to her in the [place]. MOB states [place]. MOB states that her family still resides in the [place] and JUDY's family lives in [place]. MOB states that there are some friends that JUDY works with that they will spend time with on the weekends. MOB states that if she is struggling with anything she does have the ability to call her family. Sw processed this with MOB and provided much support. Sw encouraged MOB to see if there are groups available for her to get connected to through WIC or JFS. MOB expressed understanding. Support Systems: MOB states that her supports at this time are limited. MOB states that FOB is her biggest support person. MOB states that her sister is also a good support for her, but she is only [place] the [place] from the [place] for 21 days. Depression/Shaken Baby/Safe Sleeping: Sw discussed signs and symptoms of baby blues and post depression with MOB. MOB expressed understanding. Sw also educated MOB on shaken baby prevention and ABCs of safe sleep. MOB stated that she knows these topics are important. ASSESSMENT:? MOB delivered baby on 10/21 and is medically ready for discharge and eager to get home. MOB very talkative and engaged with sw appropriately during social work assessment. MOB has limited social supports and would benefit by getting connected to a support group or mom's group that is local to her. No concerns regarding mental health or substance use. MOB receptive to sw involvement and support. PLAN:? MOB medically ready for discharge today. Baby also medically ready for discharge and is to be discharged to parents. Chapito Perry, MANAGER RENTAL, [employer]
--- NOTE | 2022-10-22 09:50 | NURSING ---
inspector advanced composite used to go over mom assessment and certificate information. Catherine #[id number]. started at 0977
[2022-10-22 09:53] VITALS: BP 110/66; PULSE 73; RESP 16; TEMP 36.4
--- NOTE | 2022-10-22 13:22 | NURSING ---
discharge instructions reviewed with [employer] supervisor. Jose #[id number]
== END 2022-10-22 12:50 | disposition home or self-care (01) | DRG 807 ==
LOC: WPOUT 02:49 → WP 02:49
PROVIDERS: Admitting Provider Obstetrics & Gynecology; Referring Provider Obstetrics & Gynecology; Visit Provider Obstetrics & Gynecology
DX: O70.0 First degree perineal laceration during delivery (principal); Z37.0 Single live birth; O69.81X0 Labor and delivery complicated by cord around neck, without compression, not applicable or unspecified; Z79.82 Long term (current) use of aspirin; Z3A.38 38 weeks gestation of pregnancy
CPT/HCPCS: 59025; 59050; 82962; 84112; 85025; 86780; 86850; 86900; 86901; 99221; J7120; A4216; G0378

== ENCOUNTER 2022-10-27 20:28 | Emergency (ER) | payer BC, MEDICAID, SELFPAY ==
[2022-10-27 20:29] VITALS: BP 116/86; PULSE 72; RESP 18; TEMP 36.6; O2SAT 100
--- NOTE | 2022-10-27 21:03 | US_ITS ---
INDICATION: bleeding, question retained products EXAMINATION: Ultrasound US Pelvis Non-OB Complete TECHNIQUE: Transabdominal and transvaginal pelvic ultrasound was performed. Grayscale, spectral waveform, and color flow Doppler evaluation of the adnexa. COMPARISON: No prior examinations available for comparison. FINDINGS: UTERUS: Anteverted. The uterus measures 16 x 11 x 8.4 cm. There is no uterine mass. The endometrial stripe measures 14 mm in AP diameter which is borderline in thickness for a premenopausal patient. There is linear echogenic shadow could represent calcification within the endometrial cavity. RIGHT OVARY: 3.6 x 2.8 x 1.9 cm. Non-enlarged, normal echogenicity. There is normal arterial inflow and venous outflow present in the right ovary. LEFT OVARY: 3.5 x 3 x 2.1 cm. Non-enlarged, normal echogenicity. There is normal arterial inflow and venous outflow present in the left ovary. FREE FLUID: None. US/Transvaginal Non- IMPRESSION: 1. Borderline thickening of the endometrium with echogenic shadow could represent calcification. Retained products of cannot be excluded. Follow-up exams is recommended. 2. No evidence of adnexal mass. Electronically Signed: Armani Cardenas MD at 22:56 EDT ,
[2022-10-27 21:29] LABS: Absolute Lymphocyte Count 2.04 X10^3/uL (0.83-4.51); Basophil# 0.03 X10^3/uL; Basophil% 0.4 % (0-1); Eosinophil# 0.16 X10^3/uL; Eosinophils% 2.3 % (0-5); Hematocrit 38.7 % (37-47); Hemoglobin 12.2 g/dL (12.0-15.0); Lymphocyte # 2.04 X10^3/ul (0.83-4.51); Lymphocyte % 29.8 % (19-41); Mean Corp Hgb Conc 31.5 g/dL (32-36); Mean Corpuscular Hgb 29.3 pg (27.0-32.0); Mean Platelet Vol. 10.2 fl (6.2-12.0); Monocyte# 0.63 X10^3/uL; Monocyte% 9.2 % (0-10); NRBC Flagged by Analyzer 0 % (0-5); Neutrophil # 3.96 X10^3/uL (2.7-7.7); Neutrophil % 57.9 % (47-70); Platelet Count 254 K/mm3 (150-450); RBC Distribution Width CV 13.6 % (11.6-14.6); RBC Distribution Width SD 46.1 fl (35.1-43.9); Red Blood Count 4.16 M/mm3 (4.2-5.4); White Blood Count 6.9 K/mm3 (4.4-11.0)
[2022-10-27 21:36] VITALS: BP 128/79; PULSE 70; RESP 15; O2SAT 99
[2022-10-27 21:43] LABS: Mucous, Urine 0 SEEN /hpf (<or=2+)
[2022-10-27 21:48] LABS: Color, Urine Yellow (Yellow); Glucose, Dipstick Normal (Normal); Ketone-Dipstick Negative (Negative); Leukocyte Esterase-Dipstick 500 /ul (Negative); Nitrite-Dipstick Negative (Negative); Occult Blood-Urine 250 /ul (Negative); Protein-Dipstick 30 mg/dl (Negative); Urine Bilirubin Dipstick Negative (Negative); Urine Clarity Clear (Clear); Urine Urobilinogen Normal (Normal)
[2022-10-27 21:53] LABS: ALB/GLOB Ratio 0.7 RATIO (0.9-2.4); AST(SGOT) 40 U/L (15-37); Alanine Aminotransfer ALT/SGPT 44 U/L (13-56); Albumin, Serum 2.9 g/dL (3.2-5.0); Alkaline Phosphatase 72 U/L (45-117); Anion Gap 7 (5-15); BUN 13 mg/dL (7-18); BUN/Creat Ratio 15.9 RATIO (10-20); Calcium,Total 9.1 mg/dL (8.5-10.1); Chloride 107 mmol/L (98-107); Creatinine, Serum 0.82 mg/dL (0.55-1.02); EST Glomerular Filtration Rate 83 mL/min (>60); Est Glom Filt Rate - Afr Amer 100 mL/min (>60); Estimated Creatinine Clearance 70.19 ml/min; Glucose 93 mg/dL (74-106); Potassium 3.9 mmol/L (3.5-5.1); Protein, Total 6.9 g/dL (6.4-8.2); Sodium Level 140 mmol/L (136-145)
[2022-10-27 21:59] LABS: Bacteria 1+ /hpf (None Seen); Red Blood Cells-Urine 10-25 SEEN /hpf (0-5); Squamous Epithelial Cells - UA 0-5 SEEN /hpf (5-10); White Blood Cells 10-25 SEEN /hpf (0-5)
[2022-10-27 22:06] LABS: hCG Titer Quant., Serum 69 mIU/mL (1-3)
--- NOTE | 2022-10-27 22:15 | ED.VIS.FEGU ---
HPI HPI - Female History of Present Illness Chief Complaint: Vag Bleeding Informant: patient and friend Narrative Narrative: Patient presents with vaginal clot and some lower extremity ankle swelling. Patient preferred to have a friend of hers translate. She called her on the phone and we had a open microphone translation. It seems like the quality was actually quite good. Patient also does understand and speak some Estonian which helped. This patient is a female. Just delivered about 1 week ago. Normal vaginal delivery. She denied any known vaginal tear but when I read the operative report she did have a small tear with repair with Vicryl. She never had complications of high blood pressure. She had been some borderline diabetic it sounds like with a prior . Patient states delivery went well. She has been feeling well. She has had progressively less bleeding. No discharge. No fevers. No cramping. This evening she passed a clot about the size of a golf ball. It was darker red-maroon. There has not been heavier bleeding before or after this. She states she is not having any pain now. No urinary symptoms. She was just told if she has heavy bleeding or clots she should return. Patient had a single clot that was passed. She has not had this repeated. She also states that she has had some swelling of her ankles. But no headache. She overall feels well. [facility] Medical History Gestational diabetes Home Medications ibuprofen 400 mg tablet 600 mg (1.5 x 400 mg) PO Q6H PRN PRN pain #30 tabs 08/20/21 [Rx Last Taken Unknown] Allergy/AdvReac Type Severity Reaction Status Date / Time No Known Allergies Allergy Verified 10/27/22 20:34 Surgical History History of gynecologic surgery Social History Smoking Status: Never smoker ROS ROS ED Constitutional Constitutional ED: Denies chills, fever(s), subjective or sweats Eyes Eyes: Denies change in vision ENT ENT ED: Denies rhinorrhea or sore throat Cardiovascular Cardiovascular: Denies chest pain, palpitations or racing heartbeat Respiratory/Chest Respiratory/Chest: Denies cough, dyspnea or dyspnea on exertion Gastrointestinal Gastrointestinal: Denies abdominal pain, diarrhea, nausea or vomiting Genitourinary Genitourinary ED: Reports other Details: See history of present illness. ; Denies dysuria Musculoskeletal Musculoskeletal: Denies myalgias Integumentary Denies rash Neurologic Neurologic: Denies headache(s), paresthesias or weakness Hematologic/Lymphatic Hematologic/Lymphatic: Denies easy bleeding or easy bruising Allergic/Immunologic Allergic/Immunologic ED: Denies urticaria EXAM Physical Exam Narrative Exam Narrative: Patient is awake alert no acute distress laying comfortably in bed. She looks nontoxic. Breathing is easy and unlabored. HEENT shows no sign of trauma. Mucous membranes are moist. Eyes show no pallor of conjunctive or icterus. Neck is supple. Lungs are clear bilaterally no pain with a deep breath. Saturations are normal at 100% on room air showing no hypoxia. Heart is regular. Rate about 75. I hear no murmur gallop or rub. Pulses are normal. Abdomen is soft. It is not tender. She really has no discomfort at all on exam. Pelvic exam: Pelvic exam showed a very small amount of slightly darker red blood in the vaginal vault. There is a very small clot at the base of the vault. No active bleeding from the cervix. No notable discomfort on exam. Uterus does not at all appear tender. Does not appear abnormally enlarged. Extremities do show just a little bit of swelling in her feet and just beginning to cross into the ankles. But it does not have pitting. Her reflexes are normal. There is no cord. No proximal tenderness. No asymmetry of calfs. This is all really limited to her feet. Const Vital Signs: 10/27/22 20:29 10/27/22 21:36 Temperature 97.8 F Temperature Source Temporal Pulse Rate 72 70 Respiratory Rate 18 15 Blood Pressure 116/86 H 128/79 H Blood Pressure Mean 96 95 Pulse Ox 100 99 Oxygen Delivery Method Room Air Room Air MDM MDM MDM Narrative Medical decision making narrative: By her history and exam it sounds like the patient passed a single clot. She is not having heavy bleeding. This was likely clot that had been in there since delivery. I reviewed her prior blood pressures when she was in the hospital. She generally ran about 10 5-1 25 or so systolic. Her blood pressures here are about the same. No significant change. Although she has edema her blood pressure is unchanged she has no headache and her reflexes are normal. Patient CBC shows normal hemoglobin although there was a mild drop from being in the hospital. White count is normal. Platelets are normal. Patient's electrolytes are normal. Patient's liver function test are normal other than minimal elevation of the AST at 40. Patient's uric acid is normal. Patient's quantitative hCG was only 69. We expected this to be up but were using as a marker for reduction. I think this low level supports a lower chance of retained products. Your show some red cells some white cell but clear urine and negative nitrites. I disc base with Dr. Mcclelland who is the physician who did the delivery. I am not seeing signs of preeclampsia. Although we need to watch this edema. With the swelling isolated to just her feet I do not think this requires acute ultrasound but if she develops asymmetrical swelling or swelling further up we may need to do ultrasound. I think the patient likely had a evacuation of a clot that was in the uterus. The endometrial stripe is only 1.4 cm when I talk to the tech who did this. No other abnormality. With this thin stripe, and relatively low beta hCG, I do not think this is likely retained products. Plan will be to close follow-up in the office. We discussed returning if she gets bleeding, pain, fevers, further swelling, shortness of breath, headache or other concerns. All questions were answered. Again we used her friend on the phone to translate as she preferred this. Lab Data Attestation: I reviewed the patient's lab results. Labs: Laboratory Results - last 24 hr 10/27/22 10/27/22 21:20 21:38 WBC 6.9 RBC 4.16 L Hgb 12.2 Hct 38.7 MCV 93.0 MCH 29.3 MCHC 31.5 L RDW Std Deviation 46.1 H RDW Coeff of Ying 13.6 Plt Count 254 MPV 10.2 Immature Gran % (Auto) 0.400 Neut % (Auto) 57.9 Lymph % (Auto) 29.8 Loup % (Auto) 9.2 Eos % (Auto) 2.3 Baso % (Auto) 0.4 Absolute Neuts (auto) 4.0 Absolute Lymphs (auto) 2.04 Nucleated RBC % 0 Sodium 140 Potassium 3.9 Chloride 107 Carbon Dioxide 26.0 Anion Gap 7 BUN 13 Creatinine 0.82 Estim Creat Clear Calc 70.19 Est GFR (MDRD) Af Amer 100 Est GFR (MDRD) Non-Af 83 BUN/Creatinine Ratio 15.9 Glucose 93 Uric Acid 5.0 Calcium 9.1 Total Bilirubin 0.40 AST 40 H ALT 44 Alkaline Phosphatase 72 Total Protein 6.9 Albumin 2.9 L Globulin 4.0 Albumin/Globulin Ratio 0.7 L HCG, Quant 69 H Urine Color Yellow Urine Clarity Clear Urine pH 7.0 Ur Specific [place] 1.010 Urine Protein 30 H Urine Glucose (UA) Normal Urine Ketones Negative Urine Occult Blood 250 H Urine Nitrite Negative Urine Bilirubin Negative Urine Urobilinogen Normal Ur Leukocyte Esterase 500 H Urine RBC 10-25 SEEN Urine WBC 10-25 SEEN Ur Squamous Epith Cells 0-5 SEEN Urine Bacteria 1+ Urine Mucus 0 SEEN Discharge Plan Triage Chief Complaint: Vag Bleeding ED Provider: Sagar Gotti Dx/Rx/DC Orders Clinical Impression: Status post normal delivery, Vaginal bleeding, Edema of both feet Instructions: After a Vaginal Prescriptions: No Action ibuprofen 400 mg Tablet 600 mg PO Q6H PRN PRN (Reason: pain) Qty: 30 0RF Primary Care Provider: Care Physician,No Primary Referrals: Tammy Mcclelland MD [Med Staff - Active Staff] - 3-5 Days Care Physician,No Primary [Primary Care Provider] - Print Language: Finnish Disposition Disposition: Home, Self Care
[2022-10-27 22:43] VITALS: BP 129/83; PULSE 64; RESP 15; O2SAT 99
== END 2022-10-27 23:01 | disposition home or self-care (01) ==
PROVIDERS: Emergency Provider Emergency Medicine; Visit Provider Emergency Medicine
DX: N93.9 Abnormal uterine and vaginal bleeding, unspecified (principal); R60.0 Localized edema
CPT/HCPCS: 76830; 80053; 81001; 84550; 84702; 85025; 99283; J7030; A4216